=== PATIENT | male | born 1965 | race Caucasian/White ===

== ENCOUNTER 2020-02-02 10:15 | Emergency (ER) | payer MEDICAID ==
[~2020-02-02] VITALS: Ht 162.6 cm; Wt 70.3 kg
[2020-02-02 10:22] VITALS: Ht 162.6 cm; Wt 70.3 kg
[2020-02-02 11:20] LABS: CALCIUM 8.9 mg/dL (8.5-10.1); CARBON DIOXIDE 31.4 mmol/L (21-32); CHLORIDE SERUM 99 mmol/L (98-107); CREATININE SERUM 0.8 mg/dL (0.7-1.3); GFR1 > 60 mL/min; GLUCOSE SERUM 154 mg/dL (74-106); POTASSIUM SERUM 3.7 mmol/L (3.5-5.1); SODIUM SERUM 135 mmol/L (136-145)
[2020-02-02 11:21] LABS: BASOPHIL % 0.5 % (0-2); PLATELET COUNT 266 x10^3mcL (130-400); RED CELL DISTRIBUTION WIDTH 12.7 % (11.5-14.5)
[2020-02-02 11:24] LABS: ALBUMIN 4.3 g/dL (3.4-5.0); ALKALINE PHOSPHATASE 101 U/L (46-116); ALT/SGPT 58 U/L (16-63); AST/SGOT 22 U/L (15-37); BILIRUBIN TOTAL 1.2 mg/dL (0.20-1.00); HDL CHOLESTEROL 59 mg/dL (40-60)
[2020-02-02 11:25] LABS: CHOLESTEROL 242 mg/dL (<200)
[2020-02-02 13:02] LABS: microscopic required? NO
[2020-02-02 13:18] LABS: UA SPECIFIC GRAVITY 1.015 (1.005-1.035); urine erythrocyte NEGATIVE (NEGATIVE)
[2020-02-02 14:08] VITALS: BP 102/56
== END 2020-02-02 15:57 | disposition home or self-care (01) ==
LOC: ED 10:15
PROVIDERS: Emergency Medicine
DX: F23 Brief psychotic disorder (principal); R50.9 Fever, unspecified
CPT/HCPCS: 36415; 87804